=== PATIENT | female | born 1955 | race Caucasian/White ===

== ENCOUNTER 2023-06-02 08:17 | Day surgery (SDC) | payer BC, MEDICARE ==
[2023-06-01 15:18] LABS: BASOPHILS # (AUTO) 0.03 K/uL (0.00-0.20); BASOPHILS % (AUTO) 0.4 % (0.0-5.0); EOSINOPHILS # (AUTO) 0.14 K/uL (0.00-0.70); EOSINOPHILS % (AUTO) 1.9 % (0.0-8.0); HEMATOCRIT 39.5 % (36-48); IMMATURE GRANULOCYTE ABSOLUTE 0.03 K/uL (0-1); LYMPHOCYTES # (AUTO) 1.5 K/uL (1.0-4.8); LYMPHOCYTES % (AUTO) 20.6 % (21.0-51.0); MEAN CORPUSCULAR HEMOGLOBIN 28.2 pg (27.0-33.0); MEAN CORPUSCULAR HGB CONC 31.1 g/dL (32.0-36.0); MEAN CORPUSCULAR VOLUME 90.6 fL (79-99); MONOCYTES # (AUTO) 0.7 K/uL (0.1-1.0); MONOCYTES % (AUTO) 8.9 % (3.0-13.0); NEUTROPHILS % (AUTO) 67.8 % (40.0-77.0); PLATELET COUNT (AUTO) 165 K/uL (130-400); RED BLOOD CELL COUNT(AUTO) 4.36 MIL/uL (4.00-5.50); RED CELL DISTRIBUTION WIDTH 13.5 % (11.0-15.5); WHITE BLOOD COUNT (AUTO) 7.3 K/uL (4.8-10.8)
[2023-06-01 15:23] VITALS: BP 134/76; PULSE 55; RESP 20
[2023-06-01 15:25] LABS: CREATININE 0.9 mg/dL (0.5-1.5); POTASSIUM 4.9 mmol/L (3.5-5.1)
[2023-06-02] VITALS (19 sets, daily range): BP systolic 116–159; BP diastolic 46–70; PULSE 44–65; RESP 11–20
[~2023-06-02] VITALS: Ht 170.2 cm; Wt 104.6 kg
[~2023-06-02 08:17] MED LIST: FLUC200T12 PO; LEVO100C4 PO; LOPE2CAP PO; MYCOPHENOLATE PO; NYST30C TP; PARO10TA71 PO; PRED2.5T PO; PYRI30TA PO
[2023-06-02] MEDS ORDERED: CEFTRIAXONE 1G VIAL ONE (08:26)
[2023-06-02] MEDS ORDERED: LACTATED RINGERS 1000ML 1,000 ML IV ONE (08:26)
[2023-06-02] MEDS ORDERED: IOHEXOL-350 50ML VIAL IV ONE (09:15)
[2023-06-02] MEDS ORDERED: LIDOCAINE PF 100MG/5ML (2%) SYRINGE 5ML ONE (10:35)
[2023-06-02] MEDS ORDERED: SUCCINYLCHOLINE 200MG/10ML SYR ONE (10:35)
[2023-06-02] MEDS ORDERED: MIDAZOLAM HCL 1 MG/ML 2ML VIAL ONE (10:35)
[2023-06-02] MEDS ORDERED: DEXAMETHASONE SOD PHOSPHATE 10MG/ML 1ML VIAL ONE (10:35)
[2023-06-02] MEDS ORDERED: ONDANSETRON 4MG INJ ONE (10:35)
[2023-06-02] MEDS ORDERED: PROPOFOL 10 MG/ML 20ML VIAL IV ONE (10:36)
[2023-06-02] MEDS ORDERED: FENTANYL CITRATE PF 50 MCG/1 ML 2ML VIAL ONE (10:36)
[2023-06-02] MEDS ORDERED: MEPERIDINE-PF 25 MG/ML SYG ONE ×2 (10:52→11:55)
[2023-06-02] MEDS ORDERED: PHENAZOPYRIDINE HCL 200 MG TABLET ONE (12:56)
== END 2023-06-02 13:30 | disposition home or self-care (01) ==
LOC: DAH 08:17
PROVIDERS: ATTEND Urology
DX: N13.2 Hydronephrosis with renal and ureteral calculous obstruction (principal); Z20.822 Contact with and (suspected) exposure to COVID-19; N13.1 Hydronephrosis with ureteral stricture, not elsewhere classified; R31.0 Gross hematuria; G70.00 Myasthenia gravis without (acute) exacerbation; G89.29 Other chronic pain; M54.50 Low back pain, unspecified; E03.9 Hypothyroidism, unspecified; E66.9 Obesity, unspecified; Z90.49 Acquired absence of other specified parts of digestive tract; Z90.710 Acquired absence of both cervix and uterus; Z98.890 Other specified postprocedural states; Z88.8 Allergy status to other drugs, medicaments and biological substances; Z91.013 Allergy to seafood; Z79.899 Other long term (current) drug therapy; Z79.890 Hormone replacement therapy
CPT/HCPCS: 80048; 85025; 36415; 93005; 52332; 74420; A4663; J7030; A4344; A4354; C1758 ×2; J7120; J3010; J0330; J1100; J2001; J0696; J2250; J2704; J2405; J2175 ×2; Q9967; A4358; C1769; C2617; A4215; A4223; A4222; A4221; A4600; J3490

== ENCOUNTER 2023-07-03 08:14 | Day surgery (SDC) | payer MEDICARE ==
[2023-07-03] VITALS (17 sets, daily range): BP systolic 129–159; BP diastolic 51–67; PULSE 59–68; RESP 14–17; O2SAT 99
[~2023-07-03] VITALS: Ht 170.2 cm; Wt 97.5 kg
[2023-07-03 09:20] LABS: BASOPHILS # (AUTO) 0.04 K/uL (0.00-0.20); BASOPHILS % (AUTO) 0.5 % (0.0-5.0); EOSINOPHILS # (AUTO) 0.13 K/uL (0.00-0.70); EOSINOPHILS % (AUTO) 1.6 % (0.0-8.0); HEMATOCRIT 41.3 % (36-48); IMMATURE GRANULOCYTE ABSOLUTE 0.03 K/uL (0-1); LYMPHOCYTES # (AUTO) 1.5 K/uL (1.0-4.8); LYMPHOCYTES % (AUTO) 18.9 % (21.0-51.0); MEAN CORPUSCULAR HEMOGLOBIN 28.4 pg (27.0-33.0); MEAN CORPUSCULAR HGB CONC 32.2 g/dL (32.0-36.0); MEAN CORPUSCULAR VOLUME 88.1 fL (79-99); MONOCYTES # (AUTO) 0.8 K/uL (0.1-1.0); MONOCYTES % (AUTO) 9.9 % (3.0-13.0); NEUTROPHILS # (AUTO) 5.4 K/uL (1.8-7.7); NEUTROPHILS % (AUTO) 68.7 % (40.0-77.0); PLATELET COUNT (AUTO) 177 K/uL (130-400); RED BLOOD CELL COUNT(AUTO) 4.69 MIL/uL (4.00-5.50); RED CELL DISTRIBUTION WIDTH 14.1 % (11.0-15.5); WHITE BLOOD COUNT (AUTO) 7.9 K/uL (4.8-10.8)
[2023-07-03 09:29] LABS: CREATININE 0.9 mg/dL (0.5-1.5); POTASSIUM 4.2 mmol/L (3.5-5.1)
[2023-07-03] MEDS ORDERED: LACTATED RINGERS 1000ML 1,000 ML IV ONE (09:30)
[2023-07-03] MEDS ORDERED: MORPHINE 4 MG SYG IVP ONE (09:30)
[2023-07-03] MEDS ORDERED: ONDANSETRON 4MG INJ IVP ONE (09:30)
[2023-07-03 09:33] LABS: ALBUMIN 4.4 g/dL (3.5-5.0); BILIRUBIN,TOTAL 0.5 mg/dL (0.2-1.0); TOTAL PROTEIN, SERUM 7.1 g/dL (6.0-8.3)
[2023-07-03 10:58] LABS: ADD UA MICROSCOPIC YES; APPEARANCE,URINE CLOUDY (CLEAR); BILIRUBIN,URINE NEGATIVE (NEGATIVE); COLOR,URINE YELLOW (YELLOW); GLUCOSE, URINE (UA) NEGATIVE (NEGATIVE); KETONES,URINE NEGATIVE (NEGATIVE); LEUKOCYTE ESTERASE ,URINE 500 Leu/uL (NEGATIVE); NITRATE,URINE NEGATIVE (NEGATIVE); OCCULT BLOOD,URINE LARGE (NEGATIVE); PH,URINE 5.5 (5.0-8.0); PROTEIN,URINE 100 mg/dL (NEGATIVE); UROBILINOGEN,URINE 0.2 mg/dL (0.2-1.0)
[2023-07-03 11:00] LABS: BACTERIA,URINE RARE /HPF (None Seen); CALCIUM OXALATE CRYSTALS,UR FEW /LPF (None Seen); MUCUS,URINE MOD LPF (None Seen); RBC,URINE TNTC /HPF (0-1); SQUAMOUS EPITHELIAL CELL,UR RARE /HPF (0-2); WBC,URINE 51-100 /HPF (0-1)
[2023-07-03] MEDS ORDERED: ZOSYN 3.375GM +NS 50ML IVPB ONE (11:30)
[2023-07-03] MEDS ORDERED: CEFTRIAXONE 2GM VIAL IVPB ONE (12:00)
[2023-07-03] MEDS ORDERED: ONDANSETRON 4MG INJ ONE (15:07)
[2023-07-03] MEDS ORDERED: LIDOCAINE PF 100MG/5ML (2%) SYRINGE 5ML ONE (15:07)
[2023-07-03] MEDS ORDERED: PROPOFOL 10 MG/ML 20ML VIAL IV ONE (15:08)
[2023-07-03] MEDS ORDERED: FENTANYL CITRATE PF 50 MCG/1 ML 2ML VIAL ONE ×2 (15:08→16:46)
[2023-07-03] MEDS ORDERED: IOHEXOL-350 50ML VIAL IV ONE (15:35)
[2023-07-03] MEDS ORDERED: EPHEDRINE SULFATE 50 MG/ML AMPULE ONE (16:22)
[2023-07-03] MEDS ORDERED: PHENAZOPYRIDINE HCL 200 MG TABLET ONE (17:41)
[2023-07-12 09:50] LABS: STONE COLOR SEE SEPARATE REPORT; STONE COMPOSITION SEE SEPARATE REPORT; STONE SIZE SEE SEPARATE REPORT; STONE WEIGHT SEE SEPARATE REPORT
[2023-07-27] MEDS ORDERED: [UNRECOGNIZED DRUG - OTHER] IV (15:17)
== END 2023-07-03 19:20 | disposition home or self-care (01) ==
LOC: EDH 08:14 → DAH 08:14
PROVIDERS: ATTEND Family Medicine
DX: N13.2 Hydronephrosis with renal and ureteral calculous obstruction (principal); E03.9 Hypothyroidism, unspecified; Z79.899 Other long term (current) drug therapy; Z79.01 Long term (current) use of anticoagulants; Z90.710 Acquired absence of both cervix and uterus; Z98.890 Other specified postprocedural states; Z90.49 Acquired absence of other specified parts of digestive tract; Z91.040 Latex allergy status; Z91.013 Allergy to seafood; Z88.8 Allergy status to other drugs, medicaments and biological substances
CPT/HCPCS: 52356; 99284; 80053; 85025; 87088; 83605; 82360; 81001; 36415; 74018; 96365; 96361; 96375; C1769 ×2; A4354; C1758; C2617; J7120; J3010 ×2; J0696; J2001; J3490; J2704; J2405 ×2; J2270; A4358; A4930; A4223; A4222; A4216; Q9967

== ENCOUNTER 2023-07-28 09:55 | Day surgery (SDC) | payer MEDICARE ==
[2023-07-27 15:06] VITALS: BP 143/65; PULSE 76; RESP 16
[2023-07-27 15:09] LABS: BASOPHILS # (AUTO) 0.03 K/uL (0.00-0.20); BASOPHILS % (AUTO) 0.4 % (0.0-5.0); EOSINOPHILS % (AUTO) 2.6 % (0.0-8.0); IMMATURE GRANULOCYTE ABSOLUTE 0.03 K/uL (0-1); LYMPHOCYTES # (AUTO) 1.4 K/uL (1.0-4.8); MEAN CORPUSCULAR HEMOGLOBIN 28.2 pg (27.0-33.0); MEAN CORPUSCULAR HGB CONC 30.5 g/dL (32.0-36.0); MEAN CORPUSCULAR VOLUME 92.4 fL (79-99); MONOCYTES # (AUTO) 0.7 K/uL (0.1-1.0); MONOCYTES % (AUTO) 9.1 % (3.0-13.0); NEUTROPHILS # (AUTO) 5.4 K/uL (1.8-7.7); NEUTROPHILS % (AUTO) 69.5 % (40.0-77.0); PLATELET COUNT (AUTO) 165 K/uL (130-400); RED BLOOD CELL COUNT(AUTO) 4.22 MIL/uL (4.00-5.50); RED CELL DISTRIBUTION WIDTH 14.6 % (11.0-15.5); WHITE BLOOD COUNT (AUTO) 7.8 K/uL (4.8-10.8)
[2023-07-27 15:16] LABS: CREATININE 0.7 mg/dL (0.5-1.5); POTASSIUM 4.5 mmol/L (3.5-5.1)
[~2023-07-28] VITALS: Ht 170.2 cm; Wt 101.3 kg
[2023-07-28] VITALS (14 sets, daily range): BP systolic 121–137; BP diastolic 52–61; PULSE 54–62; RESP 13–18
[~2023-07-28 09:55] MED LIST changes: -FLUC200T12 PO; +[UNRECOGNIZED DRUG - OTHER] IV
[2023-07-28] MEDS ORDERED: CEFTRIAXONE 1G VIAL ONE (10:23)
[2023-07-28] MEDS ORDERED: LACTATED RINGERS 1000ML 1,000 ML IV ONE (10:23)
[2023-07-28] MEDS ORDERED: LIDOCAINE PF 100MG/5ML (2%) SYRINGE 5ML ONE (13:03)
[2023-07-28] MEDS ORDERED: ONDANSETRON 4MG INJ ONE ×2 (13:03→15:32)
[2023-07-28] MEDS ORDERED: MIDAZOLAM HCL 1 MG/ML 2ML VIAL ONE (13:03)
[2023-07-28] MEDS ORDERED: PROPOFOL 10 MG/ML 20ML VIAL IV ONE (13:03)
[2023-07-28] MEDS ORDERED: FENTANYL CITRATE PF 50 MCG/1 ML 2ML VIAL ONE (13:04)
[2023-07-28] MEDS ORDERED: CEFTRIAXONE 1G VIAL IVPB ONE (13:50)
[2023-07-28] MEDS ORDERED: EPHEDRINE SULFATE 50 MG/ML AMPULE ONE (14:01)
[2023-07-28] MEDS ORDERED: MEPERIDINE-PF 25 MG/ML SYG ONE ×2 (15:32→15:52)
[2023-07-28] MEDS ORDERED: PHENAZOPYRIDINE HCL 200 MG TABLET ONE (16:35)
== END 2023-07-28 17:00 | disposition home or self-care (01) ==
LOC: DAH 09:55
PROVIDERS: ATTEND Urology
DX: Z46.6 Encounter for fitting and adjustment of urinary device (principal); N20.0 Calculus of kidney; E66.01 Morbid (severe) obesity due to excess calories; E03.9 Hypothyroidism, unspecified; Z98.890 Other specified postprocedural states; Z91.041 Radiographic dye allergy status; Z88.8 Allergy status to other drugs, medicaments and biological substances
CPT/HCPCS: 80048; 85025; 36415; 50590; 52310; A6260; A4663; J7120; J3010; J2001; J3490; J0696 ×2; J2250; J2704; J2405 ×2; J2175 ×2; A4358; A4930; A4215; A4223; A4222; A4221; A4510; A4600